=== PATIENT | female | born 1950 ===

== ENCOUNTER 2016-06-21 12:26 | Emergency (ER) | payer MEDICAID, MEDICARE ==
[2016-06-21 12:27] VITALS: BMI 34.5
[2016-06-21] MEDS ORDERED: Albuterol-Ipratrop 3 mg / 0.5 (3 ml) UD ONE (13:15)
--- NOTE | 2016-06-21 13:15 | ED PDOC ---
HPI: CCC, URI, Sore Throat Time Seen by Provider: 06/21/16 12:54 Chief Complaint (Nursing): Chest Pain Chief Complaint (Provider): cough, chest pain, fever History Per: Patient Additional Complaint(s): 66 year old female with history of asthma and HTN presents to emergency department with chest pain and cough that started 4 days ago. Patient states the cough is productive of clear sputum. She has mild shortness of breath but denies any dyspnea on exertion. Patient believes she has had fever at home but has not measured her temperature. She also has body aches and headache with no associated dizziness or vision changes. No associated nausea or vomiting. Patient denies recent travel or recent sick contacts. Past Medical History Reviewed: Historical Data, Nursing Documentation, Vital Signs Vital Signs: Last Vital Signs Temp 96.9 F L 06/21/16 12:36 Pulse 74 06/21/16 12:36 Resp 18 06/21/16 12:36 BP 121/77 06/21/16 12:36 Pulse Ox 96 06/21/16 14:50 - Medical History PMH: Anxiety, Asthma, Depression, HTN - Surgical History Other surgeries: breast reduction, abdominoplasty, left knee surgery - Family History Family History: States: No Known Family Hx - Living Arrangements Living Arrangements: With Family - Social History Current smoker - smoking cessation education provided: No Alcohol: None Drugs: Denies - Home Medications Home Medications: Ambulatory Orders Medication Instructions Recorded Albuterol 0.083% [Albuterol 0.083% 3 ml IH QID PRN 03/22/16 Inhal Luz (2.5 mg/3 ml) UD] Ammonium Lactate 12% [Lac-Hydrin 1 appl TOP DAILY 03/22/16 12% Cream (140 g)] Aspirin [Ecotrin] 81 mg PO DAILY 03/22/16 Atorvastatin [Lipitor] 20 mg PO DAILY 03/22/16 Calcium Carbonate/Vitamin D3 1 tab PO DAILY 03/22/16 [Oysco D Tablet] Cetirizine HCl [Zyrtec] 10 mg PO DAILY PRN 03/22/16 Cholecalciferol [Vitamin D 1000 IU] 1,000 unit PO DAILY 03/22/16 Clopidogrel [Plavix] 75 mg PO DAILY 03/22/16 Cyanocobalamin [Vitamin B12 1000 1,000 mcg PO DAILY 01/03/17 mcg Tab] Dextran 70/Hypromellose 1 drop EACHEYE BID 03/22/16 [Artificial Tears] Diclofenac Sodium [Voltaren] 1 appl TOP Q8H 03/22/16 Escitalopram [Lexapro] 20 mg PO HS 03/22/16 Fluticasone/Salmeterol 250/50 1 puff IH Q12H 03/22/16 [Advair Diskus 250/50] Gabapentin [Neurontin] 600 mg PO TID 03/22/16 Meclizine [Meclizine*] 25 mg PO TID 03/22/16 Metoprolol Succinate [Toprol XL] 25 mg PO DAILY 03/22/16 Omeprazole [Omeprazole] 40 mg PO DAILY 03/22/16 Oxybutynin [Ditropan Tab] 5 mg PO HS 03/22/16 Sucralfate [Carafate Oral Susp] 10 ml PO HS 03/22/16 Topiramate [Topamax] 50 mg PO BID 03/22/16 Valsartan [Diovan] 80 mg PO DAILY 03/22/16 Zolpidem [Ambien] 10 mg PO HS 03/22/16 clonazePAM [Klonopin] 0.5 mg PO TID 03/22/16 Albuterol HFA [Ventolin HFA 90 1 puff IH ASDIR #1 unit 06/21/16 mcg/actuation (8 g)] Azithromycin [Zithromax] 250 mg PO DAILY #6 tab 06/21/16 Benzonatate 200 mg PO TID PRN #20 capsule 06/21/16 Methylprednisolone [Medrol Dose 4 mg PO ASDIR #21 mg 06/21/16 Pack (21 tabs)] - Allergies Allergies/Adverse Reactions: Allergies Allergy/AdvReac Type Severity Reaction Status Date / Time No Known Allergies Allergy Verified 08/22/14 12:06 Curb-65 Severity Score - CURB-65 Severity Score Confusion: No Bun >19mg/dl (>7mmol/L): No Respiratory Rate greater than/equal to 30: No Systolic BP <90 or Diastolic BP less than/equal 60mmHg: No Age >64: No Curb-65 Score: 0 Percentage 30-day mortality: 0.6% Review of Systems ROS Statement: Except As Marked, All Systems Reviewed And Found Negative Constitutional: Positive for: Fever (subjectuve), Chills Cardiovascular: Positive for: Chest Pain (due to cough) Respiratory: Positive for: Cough, Shortness of Breath, Sputum (white), Wheezing. Negative for: SOB with Exertion Gastrointestinal: Negative for: Nausea, Vomiting Genitourinary Female: Negative for: Dysuria Neurological: Positive for: Headache. Negative for: Dizziness Physical Exam - Reviewed Nursing Documentation Reviewed: Yes Vital Signs Reviewed: Yes - Physical Exam Appears: Positive for: Well, Non-toxic, No Acute Distress Head Exam: Positive for: ATRAUMATIC, NORMAL INSPECTION, NORMOCEPHALIC Skin: Positive for: Warm Eye Exam: Positive for: EOMI, Normal appearance, PERRL ENT: Positive for: Nasal Congestion. Negative for: Pharyngeal Erythema Neck: Positive for: Normal, Painless ROM Cardiovascular/Chest: Positive for: Regular Rate, Rhythm Respiratory: Positive for: CNT, Normal Breath Sounds Gastrointestinal/Abdominal: Positive for: Normal Exam, Soft. Negative for: Tenderness, Distended, Guarding, Rebound Back: Positive for: Normal Inspection. Negative for: L CVA Tenderness, R CVA Tenderness, Vertebral Tenderness Extremity: Positive for: Normal ROM. Negative for: Pedal Edema Neurologic/Psych: Positive for: Alert, Oriented - Laboratory Results Result Diagrams: 06/21/16 13:40 06/21/16 13:40 - ECG Interpretation Of ECG: Sinus bradycardia at 57 bpm with PVCs, no acute findings, reviewed by PA and ED attending. O2 Sat by Pulse Oximetry: 96 Pulse Ox Interpretation: Normal - Other Rad CXR X-Ray: Interpreted by Me, Viewed By Me X-Ray Interpretation: no infiltrate Nebulizer Treatments/Peak Flow - Duonebs Number of Bronchodilator Doses given?: 1 - Steroid Treatment Steroid: Oral (rx medrol dose pack) Medical Decision Making Medical Decision Makin66 year old with flu like symptoms Plan: Blood cultures CBC CMP Trop Flu swab IVF PO tylenol CXR Duoneb x 1 3:30 pm: patient feels much better after meds given. She is aware of all diagnostic testing results, all questions answered. Options given for Ventolin inhaler, Tessalon Perles, Zithromax and prednisone. Patient was advised to continue with Tylenol for body aches, to rest and drink plenty fluids and to follow up with primary doctor in 2-3 days. Patient is aware she can return to ED if acutely worse at any time. Disposition - Clinical Impression Clinical Impression: Bronchitis - Patient ED Disposition Is Patient to be Admitted: No Counseled Patient/Family Regarding: Studies Performed, Diagnosis, Need For Followup, Rx Given - Disposition Referrals: Patrice Herrera MD [Family Provider] - Disposition: Routine/Home Disposition Time: 16:01 Condition: STABLE Additional Instructions: Take rx meds as directed. Tylenol as needed for bodyaches. Rest and drink plenty of fluids. Follow up with clinic in 2-3 days. Prescriptions: Benzonatate 200 mg PO TID PRN #20 capsule PRN Reason: Cough Methylprednisolone [Medrol Dose Pack (21 tabs)] 4 mg PO ASDIR #21 mg Albuterol HFA [Ventolin HFA 90 mcg/actuation (8 g)] 1 puff IH ASDIR #1 unit Azithromycin [Zithromax] 250 mg PO DAILY #6 tab Instructions: Acute Bronchitis (ED) Results - Lab Results Lab Results: 06/21/16 06/21/16 06/21/16 14:30 13:45 13:40 WBC 5.9 RBC 4.22 Hgb 11.9 L Hct 36.2 MCV 85.8 MCH 28.2 MCHC 32.9 L RDW 14.1 Plt Count 214 MPV 9.3 Neut % (Auto) 57.7 Lymph % (Auto) 26.7 [place] % (Auto) 10.1 H Eos % (Auto) 4.7 H Baso % (Auto) 0.8 Neut # 3.4 Lymph # 1.6 [place] # 0.6 Eos # 0.3 Baso # 0.0 pO2 28 L VBG pH 7.37 VBG pCO2 49 VBG HCO3 25.8 VBG Total CO2 29.8 H VBG O2 Sat (Calc) 60.2 VBG Base Excess 2.3 H VBG Potassium 3.9 Glucose 91 Lactate 0.8 FiO2 21.0 Sodium 139.0 Potassium 4.0 Chloride 113.0 H Carbon Dioxide 24 Anion Gap 17 BUN 9 Creatinine 0.8 Est GFR ( Amer) > 60 Est GFR (Non-Af Amer) > 60 Random Glucose 90 Calcium 9.2 Total Bilirubin 0.6 AST 35 ALT 33 Alkaline Phosphatase 125 Troponin I < 0.0120 Total Protein 7.3 Albumin 3.9 Globulin 3.4 Albumin/Globulin Ratio 1.1 Venous Blood Potassium 3.9 Urine Color Yellow Urine Clarity Clear Urine pH 6.0 Ur Specific [place] 1.025 Urine Protein 30 Urine Glucose (UA) Neg Urine Ketones Negative Urine Blood Negative Urine Nitrate Negative Urine Bilirubin Negative Urine Urobilinogen 0.2-1.0 Ur Leukocyte Esterase Trace Urine RBC (Auto) 2 Urine Microscopic WBC 2 Ur Squamous Epith Cells 4 Influenza Typ A,B (EIA) Negative for flu a/b
[2016-06-21] MEDS ORDERED: Albuterol-Ipratrop 3 mg / 0.5 (3 ml) UD INH STA (13:16)
[2016-06-21] MEDS ORDERED: Sodium Chloride 0.9% 1,000 ML IV STA (13:16)
[2016-06-21 13:46] LABS: VENOUS BLOOD GAS BASE EXCESS 2.3 mmol/L (0.0-2.0); VENOUS BLOOD GAS PCO2 49 mmHg (40-60); VENOUS BLOOD PH 7.37 (7.32-7.43)
[2016-06-21 14:05] LABS: BASO % 0.8 % (0.0-2.0); EOS # 0.3 K/uL (0.0-0.7); EOS % 4.7 % (0.0-4.0); HEMATOCRIT 36.2 % (34.0-47.0); LYMPH # 1.6 K/uL (1.0-4.3); LYMPH % 26.7 % (20.0-40.0); MEAN CELL VOLUME 85.8 fl (81.0-99.0); MEAN CORPUSCULAR HEMOGLOBIN 28.2 pg (27.0-31.0); MEAN CORPUSCULAR HGB CONC 32.9 g/dL (33.0-37.0); MEAN PLATELET VOLUME 9.3 fl (7.2-11.7); MONO # 0.6 K/uL (0.0-0.8); MONO % 10.1 % (0.0-10.0); NEUT # 3.4 K/uL (1.8-7.0); NEUT % 57.7 % (50.0-75.0); NRBC % 0.2 % (0.0-0.0); RED CELL DISTRIBUTION WIDTH 14.1 % (11.5-14.5); WHITE BLOOD COUNT 5.9 K/uL (4.8-10.8)
[2016-06-21 14:29] LABS: ALB/GLOB RATIO 1.1 (1.0-2.1); ALKALINE PHOSPHATASE 125 U/L (38-126); ALT/SGPT 33 U/L (9-52); AST/SGOT 35 U/L (14-36); BILIRUBIN,TOTAL 0.6 mg/dl (0.2-1.3); BLOOD UREA NITROGEN 9 mg/dl (7-17); CALCIUM 9.2 mg/dL (8.4-10.2); CARBON DIOXIDE 24 mmol/L (22-30); CHLORIDE 107 mmol/L (98-107); GFR AFRICAN-AMERICAN > 60; GLUCOSE,RANDOM 90 mg/dL (65-105); SODIUM 144 mmol/l (132-148); TOTAL PROTEIN 7.3 G/DL (6.3-8.2)
--- NOTE | 2016-06-21 15:06 | RAD ---
HISTORY: Medical clearance. COMPARISON: 03/22/2016. FINDINGS: LUNGS: No active pulmonary disease. PLEURA: No significant pleural effusion identified, no pneumothorax apparent. CARDIOVASCULAR: Tam for cardiac OSSEOUS STRUCTURES: No significant abnormalities. VISUALIZED UPPER ABDOMEN: Normal. OTHER FINDINGS: None. IMPRESSION: No active disease. No significant interval change compared to the prior examination(s). Concordant results with the preliminary interpretation rendered by the emergency department physician procedure.
[2016-06-21 15:26] LABS: RBC URINE 2 /hpf (0-3); URINE BILIRUBIN NEGATIVE (NEGATIVE); URINE BLOOD NEGATIVE (NEGATIVE); URINE COLOR YELLOW (YELLOW); URINE GLUCOSE (UA) NEG (Normal); URINE KETONE NEGATIVE (NEGATIVE); URINE LEUKOCYTE ESTERASE TRACE Leu/uL (Negative); URINE PROTEIN 30 mg/dL (NEGATIVE); URINE UROBILINOGEN 0.2-1.0 mg/dL (0.2-1.0); WBC URINE 2 /hpf (0-5)
[2016-06-21 17:07] VITALS: BP 129/70; PULSE 77; RESP 16; TEMP 97.9; O2SAT 99
== END 2016-06-21 17:07 | disposition home or self-care (01) ==
LOC: H.ER 12:26
DX: J20.9 Acute bronchitis, unspecified (principal); Z86.59 Personal history of other mental and behavioral disorders; I10 Essential (primary) hypertension
CPT/HCPCS: 71010; 80053; 81003; 82803; 84484; 85025; 87040; 87086; 87804; 99282; J7040

== ENCOUNTER 2016-12-19 10:05 | Emergency (ER) | payer MEDICARE, MEDICAID ==
[2016-12-19 10:05] VITALS: BMI 34.5
[2016-12-19] MEDS ORDERED: Sodium Chloride 0.9% 1,000 ML IV STA (10:24)
--- NOTE | 2016-12-19 10:27 | ED PDOC ---
HPI: Abdomen Time Seen by Provider: 12/19/16 10:17 Chief Complaint (Nursing): GI Problem History Per: Patient Onset/Duration Of Symptoms: Days (3) Current Symptoms Are (Timing): Still Present Severity: Mild Pain Scale Rating Of: 2 Location Of Pain/Discomfort: Epigastric, Periumbilical Quality Of Discomfort: Unable To Describe Associated Symptoms: Diarrhea. denies: Fever, Nausea, Vomiting Exacerbating Factors: None Alleviating Factors: None Additional Complaint(s): Epigastric and periumbilical pain assoc ewith diarrhea x 3 days. No fever. Denies vomiting or bloody stools. Recently returned form [place]. Past Medical History Vital Signs: Last Vital Signs Temp 96 F L 12/19/16 10:17 Pulse 78 12/19/16 10:17 Resp 18 12/19/16 10:17 BP 96/55 L 12/19/16 10:17 Pulse Ox 97 12/19/16 10:27 - Medical History PMH: Anxiety, Asthma, Depression, HTN - Family History Family History: States: Unknown Family Hx - Home Medications Home Medications: Ambulatory Orders Medication Instructions Recorded Albuterol 0.083% [Albuterol 0.083% 3 ml IH QID PRN 03/22/16 Inhal Luz (2.5 mg/3 ml) UD] Ammonium Lactate 12% [Lac-Hydrin 1 appl TOP DAILY 03/22/16 12% Cream (140 g)] Aspirin [Ecotrin] 81 mg PO DAILY 03/22/16 Atorvastatin [Lipitor] 20 mg PO DAILY 03/22/16 Calcium Carbonate/Vitamin D3 1 tab PO DAILY 03/22/16 [Oysco D Tablet] Cetirizine HCl [Zyrtec] 10 mg PO DAILY PRN 03/22/16 Cholecalciferol [Vitamin D 1000 IU] 1,000 unit PO DAILY 03/22/16 Clopidogrel [Plavix] 75 mg PO DAILY 03/22/16 Cyanocobalamin [Vitamin B12 1000 1,000 mcg PO DAILY 03/22/16 mcg Tab] Dextran 70/Hypromellose 1 drop EACHEYE BID 03/22/16 [Artificial Tears] Diclofenac Sodium [Voltaren] 1 appl TOP Q8H 03/22/16 Escitalopram [Lexapro] 20 mg PO HS 03/22/16 Fluticasone/Salmeterol 250/50 1 puff IH Q12H 03/22/16 [Advair Diskus 250/50] Gabapentin [Neurontin] 600 mg PO TID 03/22/16 Meclizine [Meclizine*] 25 mg PO TID 03/22/16 Metoprolol Succinate [Toprol XL] 25 mg PO DAILY 03/22/16 Omeprazole [Omeprazole] 40 mg PO DAILY 03/22/16 Oxybutynin [Ditropan Tab] 5 mg PO HS 03/22/16 Sucralfate [Carafate Oral Susp] 10 ml PO HS 03/22/16 Topiramate [Topamax] 50 mg PO BID 03/22/16 Valsartan [Diovan] 80 mg PO DAILY 03/22/16 Zolpidem [Ambien] 10 mg PO HS 03/22/16 clonazePAM [Klonopin] 0.5 mg PO TID 03/22/16 Albuterol HFA [Ventolin HFA 90 1 puff IH ASDIR #1 unit 06/21/16 mcg/actuation (8 g)] Azithromycin [Zithromax] 250 mg PO DAILY #6 tab 06/21/16 Benzonatate 200 mg PO TID PRN #20 capsule 06/21/16 Methylprednisolone [Medrol Dose 4 mg PO ASDIR #21 mg 06/21/16 Pack (21 tabs)] Famotidine [Pepcid] 20 mg PO Q12 #20 tab 12/19/16 Ondansetron [Zofran] 4 mg PO Q8H #10 tab 12/19/16 - Allergies Allergies/Adverse Reactions: Allergies Allergy/AdvReac Type Severity Reaction Status Date / Time No Known Allergies Allergy Verified 12/19/16 10:17 Review of Systems ROS Statement: Except As Marked, All Systems Reviewed And Found Negative Constitutional: Negative for: Fever Cardiovascular: Positive for: Palpitations Gastrointestinal: Positive for: Abdominal Pain, Diarrhea Physical Exam - Reviewed Nursing Documentation Reviewed: Yes Vital Signs Reviewed: Yes - Physical Exam Appears: Positive for: Non-toxic, No Acute Distress Head Exam: Positive for: ATRAUMATIC, NORMAL INSPECTION, NORMOCEPHALIC Skin: Positive for: Normal Color, Warm, DRY Eye Exam: Positive for: EOMI, Normal appearance, PERRL ENT: Positive for: Normal ENT Inspection Neck: Positive for: Normal, Painless ROM Cardiovascular/Chest: Positive for: Regular Rate, Rhythm Respiratory: Positive for: CNT, Normal Breath Sounds Gastrointestinal/Abdominal: Positive for: Bowel Sounds, Soft, Tenderness (Mild epigastric) Back: Positive for: Normal Inspection Extremity: Positive for: Normal ROM Neurologic/Psych: Positive for: Alert, Oriented - Laboratory Results Result Diagrams: 12/19/16 11:08 12/19/16 11:08 - ECG O2 Sat by Pulse Oximetry: 97 Disposition - Clinical Impression Clinical Impression: Gastroenteritis - Patient ED Disposition Is Patient to be Admitted: No Counseled Patient/Family Regarding: Studies Performed, Diagnosis, Need For Followup, Rx Given - Disposition Referrals: [facility] [Outside] Disposition: Routine/Home Disposition Time: 13:36 Condition: FAIR Prescriptions: Famotidine [Pepcid] 20 mg PO Q12 #20 tab Ondansetron [Zofran] 4 mg PO Q8H #10 tab Instructions: Gastroenteritis (ED) Forms: [employer] (Lao)
[2016-12-19 11:16] LABS: BASO % 0.5 % (0.0-2.0); EOS % 0.7 % (0.0-4.0); HEMATOCRIT 32.4 % (34.0-47.0); LYMPH # 1.4 K/uL (1.0-4.3); LYMPH % 22.6 % (20.0-40.0); MEAN CELL VOLUME 86.4 fl (81.0-99.0); MEAN CORPUSCULAR HGB CONC 33.6 g/dL (33.0-37.0); MEAN PLATELET VOLUME 9.2 fl (7.2-11.7); MONO # 0.5 K/uL (0.0-0.8); MONO % 8.1 % (0.0-10.0); NEUT # 4.2 K/uL (1.8-7.0); NEUT % 68.1 % (50.0-75.0); RED CELL DISTRIBUTION WIDTH 14.1 % (11.5-14.5); WHITE BLOOD COUNT 6.2 K/uL (4.8-10.8)
[2016-12-19 11:28] LABS: ALB/GLOB RATIO 1.2 (1.0-2.1); ALKALINE PHOSPHATASE 93 U/L (38-126); ALT/SGPT 17 U/L (9-52); AST/SGOT 36 U/L (14-36); BILIRUBIN,TOTAL 0.4 mg/dl (0.2-1.3); BLOOD UREA NITROGEN 12 mg/dl (7-17); CALCIUM 9.1 mg/dL (8.4-10.2); CARBON DIOXIDE 23 mmol/L (22-30); CHLORIDE 109 mmol/L (98-107); GFR AFRICAN-AMERICAN > 60; SODIUM 143 mmol/l (132-148); TOTAL PROTEIN 6.6 G/DL (6.3-8.2)
[2016-12-19 11:29] LABS: GLUCOSE,RANDOM 105 mg/dL (65-105)
[2016-12-19 14:09] VITALS: BP 124/66; PULSE 61; RESP 16; TEMP 97.9; O2SAT 99
== END 2016-12-19 14:05 | disposition home or self-care (01) ==
LOC: H.ER 10:05
DX: K52.9 Noninfective gastroenteritis and colitis, unspecified (principal)
CPT/HCPCS: 80053; 85025; 96361; 96374; 99284; J7040

== ENCOUNTER 2017-03-06 07:16 | Day surgery (SDC) | payer MEDICARE, MEDICAID ==
[2017-03-01 10:29] VITALS: RESP 18
[2017-03-06] MEDS ORDERED: Lactated Ringer's 1,000 ML IV ONE (08:30)
[2017-03-06] MEDS ORDERED: Iohexol 240 200 ML ONE (09:15)
[2017-03-06] MEDS ORDERED: Lidocaine 2% Jelly (Uro-Jet) ONE (09:15)
[2017-03-06 12:11] VITALS: BP 113/56; PULSE 54; TEMP 98; O2SAT 98
--- NOTE | 2017-03-06 14:19 | RAD ---
PROCEDURE: Intraoperative Fluoroscopy. HISTORY: CYSTOSCOPY FINDINGS: Fluoroscopic assistance was provided for cystoscopy. Please refer to the current procedure: 6.0
--- NOTE | 2017-03-07 08:51 | OP ---
PROCEDURE DATE: 03/06/2017 PREOPERATIVE DIAGNOSIS: Urinary incontinence. POSTOPERATIVE DIAGNOSIS: Urinary incontinence. PROCEDURE: Cystogram followed by a cystoscopy. DESCRIPTION OF PROCEDURE: The patient placed on the operating room table in a supine position. The area of the groin was draped and prepped. At this time, using 2% lidocaine gel, I numbed the urethra. At this time, I inserted a 16 two-way Valdez catheter, drained the bladder and then filled the bladder to capacity with Cystografin. She was able to hold less than 150 mL. She had significant amount of pain on holding that amount of fluid and in any event at that time, the catheter was clamped. The patient was asked to cough on Valsalva. She generated a positive 1 hypermobility of the bladder neck. I removed the Valdez catheter and had the patient cough several times, she generated a positive one-half Good leak test. Following this, I then drained the bladder and I inserted a flexible cystoscope for evaluation of the internal bladder wall. Ureteral orifices were normally placed in their A position. The bladder wall was free of any lesions, diverticula or unusual findings on the bladder wall itself. Once these observations then were made, the patient was taken from the operating room in good condition. Aniceto Gamble MD
== END 2017-03-06 11:30 | disposition home or self-care (01) ==
LOC: H.OPSURG 07:16
PROVIDERS: ATTEND Urology
DX: N32.81 Overactive bladder (principal); M19.90 Unspecified osteoarthritis, unspecified site; F32.9 Major depressive disorder, single episode, unspecified; D64.9 Anemia, unspecified; M54.9 Dorsalgia, unspecified
CPT/HCPCS: 51600; J7120; Q9966

== ENCOUNTER 2017-08-07 08:58 | Observation (INO) | payer MEDICARE, MEDICAID ==
[2017-08-07 08:58] VITALS: BMI 34.5
[2017-08-07 09:55] LABS: BASO # 0.1 K/uL (0.0-0.2); EOS # 0.2 K/uL (0.0-0.7); HEMOGLOBIN 11.7 g/dL (12.0-16.0); LYMPH # 1.6 K/uL (1.0-4.3); LYMPH % 26.7 % (20.0-40.0); MEAN CELL VOLUME 86.8 fl (81.0-99.0); MEAN CORPUSCULAR HGB CONC 33.4 g/dL (33.0-37.0); MEAN PLATELET VOLUME 8.5 fl (7.2-11.7); MONO # 0.5 K/uL (0.0-0.8); MONO % 7.6 % (0.0-10.0); NEUT # 3.8 K/uL (1.8-7.0); NEUT % 61.7 % (50.0-75.0); RBC 4.04 Mil/uL (3.80-5.20); RED CELL DISTRIBUTION WIDTH 14.8 % (11.5-14.5); WHITE BLOOD COUNT 6.1 K/uL (4.8-10.8)
[2017-08-07 10:04] LABS: ALB/GLOB RATIO 1.1 (1.0-2.1); ALBUMIN 3.8 g/dL (3.5-5.0); ALT/SGPT 27 U/L (9-52); AST/SGOT 27 U/L (14-36); BLOOD UREA NITROGEN 15 mg/dl (7-17); CALCIUM 9.5 mg/dL (8.4-10.2); GFR AFRICAN-AMERICAN > 60; GFR NON-AFRICAN AMERICAN 55
--- NOTE | 2017-08-07 10:48 | CT ---
PROCEDURE: CT HEAD WITHOUT CONTRAST. HISTORY: r/o ICH COMPARISON: None available. TECHNIQUE: Axial computed tomography images were obtained through the head/brain without intravenous contrast. Radiation dose: Total exam DLP = 807.31 mGy-cm. This CT exam was performed using one or more of the following dose reduction techniques: Automated exposure control, adjustment of the mA and/or kV according to patient size, and/or use of iterative reconstruction technique. FINDINGS: HEMORRHAGE: No intracranial hemorrhage. BRAIN: Good corticomedullary differentiation is seen. Diffuse expansion of the ventriculosulcal and cisternal spaces is appreciated compatible with diffuse cerebral atrophy. A chronic lacune is seen at the upper left clem/cerebral peduncle. No extra-axial fluid collection is identified and the midline brain anatomy appears grossly nonfocal as imaged. There is no mass effect throughout. VENTRICLES: Unremarkable. No hydrocephalus. CALVARIUM: Unremarkable. PARANASAL SINUSES: Unremarkable as visualized. No significant inflammatory changes. MASTOID AIR CELLS: Unremarkable as visualized. No inflammatory changes. OTHER FINDINGS: None. IMPRESSION: No definite CT evidence of an acute or subacute brain infarction at this time. A chronic lacune is identified at the upper left clem/ cerebral peduncle. No intracranial hemorrhage or mass-effect.
--- NOTE | 2017-08-07 10:53 | RAD ---
PROCEDURE: Radiographs of the Right Forearm HISTORY: fall R arm pain COMPARISON: None available. TECHNIQUE: Frontal and lateral views obtained. FINDINGS: BONES: No fracture or destructive lesion. JOINT SPACES: Unremarkable. OTHER FINDINGS: None. IMPRESSION: Unremarkable radiographs of the right forearm.
--- NOTE | 2017-08-07 10:54 | RAD ---
PROCEDURE: Radiographs of the pelvis. HISTORY: fall L pelvis pain COMPARISON: None. FINDINGS: BONES: Pelvic Bones: Unremarkable. Hips: Mild and symmetrical degenerative changes. JOINTS: Sacroiliac Joints: Unremarkable. Pubic Symphysis: Unremarkable. OTHER FINDINGS: None. IMPRESSION: No significant or acute findings to account for/ related to the clinical presentation. Additional benign and/or incidental findings described above.
--- NOTE | 2017-08-07 10:54 | RAD ---
PROCEDURE: Radiographs of the Lumbar Spine. HISTORY: fall back pain COMPARISON: 03/03/2014 FINDINGS: BONES: Grade 1 anterolisthesis L5-S1. No vertebral body fractures identified. DISC SPACES: Unremarkable. OTHER FINDINGS: Calcified nonaneurysmal abdominal aorta. IMPRESSION: No acute findings related to/accounting for the clinical presentation. Additional benign and/or incidental findings described above. No significant interval change compared to the prior examination(s).
--- NOTE | 2017-08-07 10:55 | RAD ---
HISTORY: fall COMPARISON: 03/01/2017 TECHNIQUE: Chest PA and lateral FINDINGS: LUNGS: No active pulmonary disease. PLEURA: No significant pleural effusion identified. No pneumothorax apparent. CARDIOVASCULAR: Normal. OSSEOUS STRUCTURES: No significant abnormalities. VISUALIZED UPPER ABDOMEN: Normal. OTHER FINDINGS: None. IMPRESSION: No active disease. No significant interval change compared to the prior examination(s).
--- NOTE | 2017-08-07 10:57 | RAD ---
PROCEDURE: Right Hand Radiographs. HISTORY: fall R hand pain COMPARISON: 03/03/2014 FINDINGS: BONES: Normal. No fracture. JOINTS: Osteoarthritic changes affecting proximal, distal interphalangeal joints and carpal 1st metacarpal joint (progressive compared to the prior study) SOFT TISSUES: Normal. OTHER FINDINGS: None. IMPRESSION: No acute findings related to/accounting for the clinical presentation. Osteoarthritic changes moderate. Progression carpal 1st metacarpal joint only.
--- NOTE | 2017-08-07 12:58 | ED PDOC ---
HPI: General Adult Time Seen by Provider: 08/07/17 09:12 Chief Complaint (Nursing): Upper Extremity Problem/Injury Chief Complaint (Provider): fall on monday History Per: Patient History/Exam Limitations: no limitations Current Symptoms Are (Timing): Still Present Similar Symptoms Previously: + Additional Complaint(s): 67yo female c/o fall on monday preceded by dizziness, injured her R forearm, hand, neck and back. Denies LOC. Taking OTC NSAIDs w some relief. Denies chest pain, SOB, fever, edema or focal weakness. PMD [facility] Cardio [place]. States last stress several years ago, had cath at [facility] about 10yrs ago. Past Medical History Reviewed: Historical Data, Nursing Documentation, Vital Signs Vital Signs: Last Vital Signs Temp 98.2 F 08/07/17 17:04 Pulse 79 08/07/17 17:04 Resp 16 08/07/17 17:04 BP 93/61 L 08/07/17 17:04 Pulse Ox 98 08/07/17 13:32 - Medical History PMH: Anemia, Anxiety, Arthritis, Asthma, Depression, HTN, Hypercholesterolemia Denies: Chronic Kidney Disease - Surgical History Other surgeries: stomach surgery - Family History Family History: States: Unknown Family Hx - Social History Current smoker - smoking cessation education provided: No - Home Medications Home Medications: Ambulatory Orders Medication Instructions Recorded Aspirin [Adult Low Dose Aspirin EC] 81 mg PO DAILY 03/06/17 Diclofenac Sodium [Voltaren] 1 appl TOP Q8 PRN 03/06/17 Gabapentin [Neurontin] 600 mg PO TID 03/06/17 Metoprolol Succinate [Toprol XL] 25 mg PO DAILY 03/06/17 Topiramate [Topamax] 50 mg PO BID 03/06/17 Valsartan [Diovan] 80 mg PO DAILY 03/06/17 Zolpidem Tartrate [Ambien] 10 mg PO HS 03/06/17 clonazePAM [Klonopin] 0.5 mg PO TID 03/06/17 Albuterol 0.083% [Albuterol 0.083% 3 ml IH Q6 PRN 08/07/17 Inhal Luz (2.5 mg/3 ml) UD] Calcium Carbonate [Oscal] 1 tab PO BID 08/07/17 Clopidogrel [Plavix] 75 mg PO DAILY 08/07/17 Diclofenac Sodium [Diclofenac 100 mg PO Q12 08/07/17 Sodium ER] Escitalopram [Lexapro] 20 mg PO DAILY 08/07/17 Imipramine [Tofranil] 50 mg PO HS 08/07/17 Meclizine [Meclizine*] 25 mg PO Q8 08/07/17 Pantoprazole Sodium [Protonix] 40 mg PO DAILY 08/07/17 Sucralfate [Carafate] 1 gm PO BID 08/07/17 buPROPion SR [Wellbutrin] 100 mg PO Q12 08/07/17 - Allergies Allergies/Adverse Reactions: Allergies Allergy/AdvReac Type Severity Reaction Status Date / Time No Known Allergies Allergy Verified 08/07/17 09:09 Review of Systems Constitutional: Negative for: Fever Cardiovascular: Positive for: Palpitations. Negative for: Chest Pain, Orthopnea Respiratory: Negative for: Cough, Shortness of Breath Genitourinary Female: Negative for: Dysuria Musculoskeletal: Positive for: Neck Pain, Arm Pain, Back Pain, Hand Pain, Other (aches and pains). Negative for: Foot Pain Skin: Negative for: Rash, Lesions, Jaundice Neurological: Positive for: Dizziness. Negative for: Weakness, Numbness, Headache Psych: Negative for: Depression Physical Exam - Reviewed Nursing Documentation Reviewed: Yes Vital Signs Reviewed: Yes - Physical Exam Appears: Positive for: Well, Non-toxic, No Acute Distress Head Exam: Positive for: ATRAUMATIC, NORMAL INSPECTION, NORMOCEPHALIC Skin: Positive for: Normal Color, Warm, DRY Eye Exam: Positive for: EOMI, Normal appearance, PERRL ENT: Positive for: Normal ENT Inspection Neck: Positive for: Normal, Painless ROM Cardiovascular/Chest: Positive for: Regular Rate, Rhythm Respiratory: Positive for: CNT, Normal Breath Sounds Gastrointestinal/Abdominal: Positive for: Normal Exam, Soft. Negative for: Tenderness, Guarding Back: Positive for: Normal Inspection Extremity: Positive for: Tenderness (R central forearm mild ecchymosis, R prox hand/radial side mild tenderness, no deformity/edema to hands, FROM hips, back mild paraspinal tenderness no step offs) Neurologic/Psych: Positive for: Alert, Oriented - Laboratory Results Result Diagrams: 08/07/17 09:40 08/07/17 09:40 - ECG ECG: Positive for: Interpreted By Me ECG Rhythm: Positive for: Sinus Rhythm, ST/T Changes Interpretation Of Abn EKG: + anterior ST inversions new from prior EKG 2016 Rate: 72 O2 Sat by Pulse Oximetry: 98 Pulse Ox Interpretation: Normal Medical Decision Making Medical Decision Making: BP mildly low check bloodwork, imaging r/o traumatic injury EKG obtained given fall, dizziness and borderline BP +ST changes compared to prior from [address] Ford for further history Dr Sosa returned call and case discussed. labs unremarkable XRays did not demonstrate acute fracture R hand/forearm/pelvis CXR unremarkable Admit Obs FP service D/w Dr Bernabe Disposition - Clinical Impression Clinical Impression: Acute electrocardiogram changes, Dizziness, Head injury, Contusion, forearm, Sprain, hand - Patient ED Disposition Is Patient to be Admitted: Yes Counseled Patient/Family Regarding: Studies Performed, Diagnosis - Disposition Disposition Time: 11:45 Condition: STABLE - Pt Status Changed To: Hospital Disposition Of: Observation - POA Present On Arrival: None
--- NOTE | 2017-08-07 15:22 | CARD ---
APPROVED REPORT EKG Measurement Heart [id number] CO [id number] <Conclusion> Normal sinus rhythm Incomplete right bundle branch block Minimal voltage criteria for LVH, may be normal variant ST & T wave abnormality, consider anterior ischemia Abnormal ECG
--- NOTE | 2017-08-07 16:38 | CP.PCM.HP ---
History of Present Illness - History of Present Illness History of Present Illness: 67 year old female w/ PMHx of HTN, HLD, Ashtma presented to ED after a fall on Monday preceded by dizziness. Patient injured her R forearm, hand, neck and back. Patient denies LOC though cant remember how she fell though she knows it was 3 steps.Patient taking OTC NSAIDs with some relief. Denies chest pain, SOB, fever, edema or focal weakness. Patient was evaluated in ED, xrays/CT were completed, unremarkable. However, there was some notable ekg changes. These changes were discussed with patient's special procedure tech group, recommending to observe patient in the telemetry unit. Patient denies chest pain, sob, abdominal pain, nausea, vomiting, diarrhea, fever, chills. Patient does admit to occasionally lightheadness that she has history of that is resolved with meclizine. No other complaints offered at this time. PMHx: Anemia, Anxiety, Arthritis, Asthma, Depression, HTN, Hypercholesterolemia , States last stress several years ago, had cath at [facility] about 10yrs ago. Medications: As per chart Allergies: NKDA Family hx: non contributory Social hx: denies etoh, tobacco, or drug use ED Course: Vitals stable EKG: +ST changes compared to prior from [address] Ford for further history. Dr Sosa returned call and case discussed. Labs unremarkable XRays did not demonstrate acute fracture R hand/forearm/pelvis CXR unremarkable CT head no acute changes Present on Admission - Present on Admission Any Indicators Present on Admission: No Review of Systems - Review of Systems All systems: reviewed and no additional remarkable complaints except (mentioned in HPI) Past Patient History - Past Medical History & Family History Past Medical History?: Yes - Past Social History Smoking Status: Never Smoked - CARDIAC Hx Hypercholesterolemia: Yes Hx Hypertension: Yes - PULMONARY Hx Asthma: Yes - NEUROLOGICAL Hx Neurological Disorder: No Hx Vertigo: Yes - HEENT Hx HEENT Problems: No - RENAL Hx Chronic Kidney Disease: No - ENDOCRINE/METABOLIC Hx Endocrine Disorders: No - HEMATOLOGICAL/ONCOLOGICAL Hx Anemia: Yes - INTEGUMENTARY Hx Dermatological Problems: No - MUSCULOSKELETAL/RHEUMATOLOGICAL Hx Arthritis: Yes - GASTROINTESTINAL Hx Gastrointestinal Disorders: No - GENITOURINARY/GYNECOLOGICAL Hx Genitourinary Disorders: Yes Hx Incontinence: Yes (AT NIGHT) - PSYCHIATRIC Hx Anxiety: Yes Hx Depression: Yes - SURGICAL HISTORY Hx Surgeries: Yes Hx Section: Yes (x3) Hx Gastric Bypass Surgery: Yes (2009) Hx Hysterectomy: Yes Other/Comment: BREAST REDUCTION - ANESTHESIA Hx Anesthesia: Yes Hx Anesthesia Reactions: No Hx Malignant Hyperthermia: No Meds Allergies/Adverse Reactions: Allergies Allergy/AdvReac Type Severity Reaction Status Date / Time No Known Allergies Allergy Verified 08/07/17 09:09 Physical Exam - Constitutional Appears: Well, Non-toxic, No Acute Distress - Head Exam Head Exam: NORMAL INSPECTION, NORMOCEPHALIC Additional comments: left parietal contusion without tenderness or erythema - Eye Exam Eye Exam: EOMI, Normal appearance, PERRL - ENT Exam ENT Exam: Mucous Membranes Moist - Neck Exam Neck exam: Positive for: Normal Inspection - Respiratory Exam Respiratory Exam: Clear to Auscultation Bilateral, NORMAL BREATHING PATTERN. absent: Decreased Breath Sounds, Rales, Rhonchi, Wheezes - Cardiovascular Exam Cardiovascular Exam: REGULAR RHYTHM, RRR, +S1, +S2 - GI/Abdominal Exam GI & Abdominal Exam: Normal Bowel Sounds, Soft. absent: Tenderness - Extremities Exam Extremities exam: Positive for: normal inspection. Negative for: calf tenderness, pedal edema - Back Exam Back exam: NORMAL INSPECTION - Neurological Exam Neurological exam: Alert, Normal Gait, Oriented x3 - Psychiatric Exam Psychiatric exam: Normal Affect, Normal Mood - Skin Skin Exam: Abrasion (right forearm), Dry, Intact, Normal Color, Warm Results - Vital Signs Recent Vital Signs: Last Vital Signs Temp 98.2 F 08/07/17 09:09 Pulse 79 08/07/17 09:09 Resp 16 08/07/17 09:09 BP 93/61 L 08/07/17 09:09 Pulse Ox 98 08/07/17 13:32 - Labs Result Diagrams: 08/07/17 09:40 08/07/17 09:40 Labs: Laboratory Results - last 24 hr 08/07/17 08/07/17 09:40 09:40 WBC 6.1 RBC 4.04 Hgb 11.7 L Hct 35.0 MCV 86.8 MCH 29.0 MCHC 33.4 RDW 14.8 H Plt Count 252 MPV 8.5 Neut % (Auto) 61.7 Lymph % (Auto) 26.7 [place] % (Auto) 7.6 Eos % (Auto) 3.0 Baso % (Auto) 1.0 Neut # (Auto) 3.8 Lymph # (Auto) 1.6 [place] # (Auto) 0.5 Eos # (Auto) 0.2 Baso # (Auto) 0.1 Sodium 141 Potassium 4.3 Chloride 103 Carbon Dioxide 26 Anion Gap 16 BUN 15 Creatinine 1.0 Est GFR ( Amer) > 60 Est GFR (Non-Af Amer) 55 Random Glucose 89 Calcium 9.5 Total Bilirubin 0.4 AST 27 ALT 27 Alkaline Phosphatase 117 Total Creatine Kinase 62 Troponin I < 0.0120 Total Protein 7.4 Albumin 3.8 Globulin 3.6 Albumin/Globulin Ratio 1.1 Assessment & Plan (1) Abnormal EKG Status: Acute (2) Anxiety Status: Chronic (3) HTN (hypertension) Status: Chronic (4) Dizziness Status: Chronic (5) DVT prophylaxis Status: Acute - Assessment and Plan (Free Text) Assessment: 67 year old female w/ PMHx of HTN, HLD, Ashtma with a fall preceded by dizziness on Monday, notable for EKG changes. Plan (1) Abnormal EKG -Case discussed with ED attending whom discussed with Dr. Sosa, agrees for observation on telemetry unit -Asymptomatic at this time -Repeat EKG in AM -r/o ACS, trop x 3, 1st negative -[employer] consulted, appreciate recommendations -monitor on telemetry unit (2) HTN (hypertension) -controlled -asymptomatic -c/w home meds and f/u with cardiology recommendations (3) Dizziness -Chronic -Relived in the past with meclizine, as per patient diagnosed with vertigo -will continue with meclizine (4) Fall/presyncope -Imaging negative -f/u with [employer] recommendations -pain control as needed (5) Anxiety -c/w home medications -no acute exacerbation noted at this time (6) DVT prophylaxis Lovenox 40mg SC
[2017-08-07] MEDS ORDERED: Patient's Own Med (Diclofenac Sodium [Voltaren] 1 APPL) TOP PRN (17:09)
--- NOTE | 2017-08-07 21:31 | CP.PCM.CON ---
History of Present Illness - History of Present Illness History of Present Illness: CC: Fall, near syncope. HPI: I have been requested on cardiology consultation by Dr. Hernandez on Mrs. Teixeira who is a 67 year old female with a PMH of hypertension, palpitations, obesity and anxiety who presents to [facility] with her and granddaughter after sustaining a fall after climbing 3 steps where she sustained trauma to the arms, elbows and torso. She did not experience syncope but does not recall the entire event. The patient denies dizziness, chest pain, palpitations or any other complaints prior to the event. She did note that her BP at home was 90/60 mmHg. She had another similar event a month ago when she fell after using the bathroom. A CT of the head revealed an old lacunar infarct , an ECG revealed NSR, IRBBB, LVH and possible anterior ischemia and two sets of troponins are negative. Review of Systems - Constitutional Constitutional: As Per HPI, Frequent Falls. absent: Chills, Fatigue, Fever - EENT Eyes: absent: Blurred Vision, Diplopia, Loss of Peripheral Vision, Pain Ears: Dizziness. absent: Abnormal Hearing Nose/Mouth/Throat: Neck Pain. absent: Nasal Congestion, Throat Swelling - Cardiovascular Cardiovascular: absent: Chest Pain, Dyspnea on Exertion, Edema, Palpitations - Respiratory Respiratory: absent: Cough, Dyspnea, Wheezing, Excessive Mucous Production - Gastrointestinal Gastrointestinal: absent: Abdominal Pain, Diarrhea, Dyspepsia, Nausea, Vomiting - Genitourinary Genitourinary: absent: Dysuria - Integumentary Integumentary: absent: Erythema, Rash, Skin Ulcer, Swelling - Neurological Neurological: absent: Abnormal Gait, Abnormal Speech, Focal Weakness, Headaches , Sensory Deficit - Psychiatric Psychiatric: Anxiety. absent: Memory Loss - Endocrine Endocrine: Fatigue, Flushing - Hematologic/Lymphatic Hematologic: absent: Easy Bleeding, Easy Bruising Past Patient History - Past Medical History & Family History Past Medical History?: Yes - Past Social History Smoking Status: Never Smoked Alcohol: None Drugs: Denies - CARDIAC Hx Hypercholesterolemia: Yes Hx Hypertension: Yes - PULMONARY Hx Asthma: Yes - NEUROLOGICAL Hx Neurological Disorder: No Hx Vertigo: Yes - HEENT Hx HEENT Problems: No - RENAL Hx Chronic Kidney Disease: No - ENDOCRINE/METABOLIC Hx Endocrine Disorders: No - HEMATOLOGICAL/ONCOLOGICAL Hx Anemia: Yes - INTEGUMENTARY Hx Dermatological Problems: No - MUSCULOSKELETAL/RHEUMATOLOGICAL Hx Arthritis: Yes - GASTROINTESTINAL Hx Gastrointestinal Disorders: No - GENITOURINARY/GYNECOLOGICAL Hx Genitourinary Disorders: Yes Hx Incontinence: Yes (AT NIGHT) - PSYCHIATRIC Hx Anxiety: Yes Hx Depression: Yes - SURGICAL HISTORY Hx Surgeries: Yes Hx Section: Yes (x3) Hx Gastric Bypass Surgery: Yes (2009) Hx Hysterectomy: Yes Other/Comment: BREAST REDUCTION - ANESTHESIA Hx Anesthesia: Yes Hx Anesthesia Reactions: No Hx Malignant Hyperthermia: No Meds Allergies/Adverse Reactions: Allergies Allergy/AdvReac Type Severity Reaction Status Date / Time No Known Allergies Allergy Verified 08/07/17 09:09 - Medications Medications: Current Medications Aspirin (Ecotrin) 81 mg PO DAILY [facility] Bupropion HCl (Wellbutrin) 100 mg PO Q12 [facility] Last Admin: 08/07/17 21:07 Dose: 100 mg Calcium Carbonate (Oscal) 500 mg PO BID [facility] Clonazepam (Klonopin) 0.5 mg PO TID [facility] Clopidogrel Bisulfate (Plavix) 75 mg PO DAILY [facility] Enoxaparin Sodium (Lovenox) 40 mg SC DAILY [facility] PRN Reason: Protocol Escitalopram Oxalate (Lexapro) 20 mg PO DAILY [facility] Gabapentin (Neurontin) 600 mg PO TID [facility] Home Med (Diclofenac Sodium [Voltaren]) 1 appl TOP Q8 PRN PRN Reason: Pain, moderate (4-7) Meclizine HCl (Antivert) 25 mg PO Q8 PRN PRN Reason: Dizziness Metoprolol Succinate (Toprol Xl) 25 mg PO DAILY [facility] Pantoprazole Sodium (Protonix Ec Tab) 40 mg PO DAILY [facility] Topiramate (Topamax) 50 mg PO BID [facility] Last Admin: 08/07/17 18:42 Dose: 50 mg Valsartan (Diovan) 80 mg PO DAILY [facility] Zolpidem Tartrate (Ambien) 5 mg PO HS PRN PRN Reason: Insomnia Physical Exam - Constitutional Appears: Well, Non-toxic, No Acute Distress, Other - Head Exam Head Exam: ATRAUMATIC. absent: NORMAL INSPECTION, NORMOCEPHALIC - Eye Exam Eye Exam: PERRL. absent: EOMI, Normal appearance - ENT Exam ENT Exam: absent: Mucous Membranes Moist, Normal Exam - Neck Exam Neck exam: Positive for: Full Rom, Normal Inspection - Respiratory Exam Respiratory Exam: Clear to Auscultation Bilateral. absent: Rales, Rhonchi, Wheezes, Respiratory Distress - Cardiovascular Exam Cardiovascular Exam: REGULAR RHYTHM, RRR, +S1, +S2. absent: Gallop, Rubs - GI/Abdominal Exam GI & Abdominal Exam: Normal Bowel Sounds, Soft. absent: Distended, Guarding, Tenderness - Rectal Exam Rectal Exam: Deferred - Extremities Exam Extremities exam: Positive for: full ROM, normal inspection. Negative for: joint swelling, pedal edema - Back Exam Back exam: FULL ROM, NORMAL INSPECTION. absent: tenderness - Neurological Exam Neurological exam: Alert, CN II-XII Intact, Oriented x3 - Psychiatric Exam Psychiatric exam: Normal Affect, Normal Mood - Skin Skin Exam: Abrasion, Dry, Normal Color, Warm Results - Vital Signs Recent Vital Signs: Last Vital Signs Temp 97.6 F 08/07/17 20:19 Pulse 68 08/07/17 20:19 Resp 20 08/07/17 20:19 BP 128/77 08/07/17 20:19 Pulse Ox 98 08/07/17 20:19 - Labs Result Diagrams: 08/07/17 09:40 08/07/17 09:40 Labs: Laboratory Results - last 24 hr 08/07/17 08/07/17 08/07/17 09:40 09:40 18:00 WBC 6.1 RBC 4.04 Hgb 11.7 L Hct 35.0 MCV 86.8 MCH 29.0 MCHC 33.4 RDW 14.8 H Plt Count 252 MPV 8.5 Neut % (Auto) 61.7 Lymph % (Auto) 26.7 [place] % (Auto) 7.6 Eos % (Auto) 3.0 Baso % (Auto) 1.0 Neut # (Auto) 3.8 Lymph # (Auto) 1.6 [place] # (Auto) 0.5 Eos # (Auto) 0.2 Baso # (Auto) 0.1 Sodium 141 Potassium 4.3 Chloride 103 Carbon Dioxide 26 Anion Gap 16 BUN 15 Creatinine 1.0 Est GFR ( Amer) > 60 Est GFR (Non-Af Amer) 55 Random Glucose 89 Calcium 9.5 Total Bilirubin 0.4 AST 27 ALT 27 Alkaline Phosphatase 117 Total Creatine Kinase 62 Troponin I < 0.0120 < 0.0120 Total Protein 7.4 Albumin 3.8 Globulin 3.6 Albumin/Globulin Ratio 1.1 Assessment & Plan - Assessment and Plan (Free Text) Assessment: 1. S/p fall. 2. Orthostatic hypotension. 3. Anxiety. 4. HTN. Plan: 1. Continue present medical management. 2. Orthostatic BP checks. 3. Monitor telemetry. 4. Stable cardiac meng, will sign off. - Date & Time Date: 08/07/17 Time: 18:20
[2017-08-08 05:39] LABS: HEMOGLOBIN 11.2 g/dL (12.0-16.0); MEAN CELL VOLUME 86.9 fl (81.0-99.0); MEAN CORPUSCULAR HEMOGLOBIN 28.6 pg (27.0-31.0); MEAN CORPUSCULAR HGB CONC 32.9 g/dL (33.0-37.0); RBC 3.91 Mil/uL (3.80-5.20); RED CELL DISTRIBUTION WIDTH 14.5 % (11.5-14.5); WHITE BLOOD COUNT 5.9 K/uL (4.8-10.8)
[2017-08-08 05:51] LABS: IRON 35 ug/dL (37-170)
[2017-08-08 06:00] LABS: % IRON SATURATION 8 % (20-55); TOTAL IRON BINDING CAPACITY 432 ug/dL (250-450)
[2017-08-08 06:12] LABS: FERRITIN 8.4 ng/Ml (11.1-264.0)
[2017-08-08] MEDS: Enoxaparin 40 mg Syringe SC SCH (08:41)
[2017-08-08] MEDS: Pantoprazole 40 mg EC Tab PO SCH (08:42)
[2017-08-08] MEDS ORDERED: Metoprolol Succinate 25 mg XL Tab PO SCH (09:00)
--- NOTE | 2017-08-08 16:05 | CP.PCM.PN ---
Subjective - Date & Time of Evaluation Date of Evaluation: 08/08/17 Time of Evaluation: 07:30 - Subjective Subjective: Patient seen and examined at bedside this morning. No acute overnight events. Pt reports feeling fine. Pt reports occasional dizziness but states its chronic. Denies any chest pain, dyspnea, headache, blurry vision, cough, abdominal pain, nausea, vomiting, calf pain, fever or chills. Pt is tolerating PO intake. Has regular BM and normal voiding. Objective - Vital Signs/Intake and Output Vital Signs (last 24 hours): Temp Pulse Resp BP Pulse Ox 97.8 F 61 18 109/70 99 08/08/17 12:25 08/08/17 12:25 08/08/17 12:25 08/08/17 12:25 08/08/17 12:25 - Medications Medications: Current Medications Acetaminophen (Tylenol 325mg Tab) 650 mg PO Q4 PRN PRN Reason: Headache Aspirin (Ecotrin) 81 mg PO DAILY [facility] Last Admin: 08/08/17 08:42 Dose: 81 mg Bupropion HCl (Wellbutrin) 100 mg PO Q12 [facility] Last Admin: 08/08/17 08:43 Dose: 100 mg Calcium Carbonate (Oscal) 500 mg PO BID [facility] Last Admin: 08/08/17 08:41 Dose: 500 mg Clonazepam (Klonopin) 0.5 mg PO TID [facility] Last Admin: 08/08/17 12:38 Dose: 0.5 mg Clopidogrel Bisulfate (Plavix) 75 mg PO DAILY [facility] Last Admin: 08/08/17 08:41 Dose: 75 mg Enoxaparin Sodium (Lovenox) 40 mg SC DAILY [facility] PRN Reason: Protocol Last Admin: 08/08/17 08:41 Dose: 40 mg Escitalopram Oxalate (Lexapro) 20 mg PO DAILY [facility] Last Admin: 08/08/17 08:42 Dose: 20 mg Gabapentin (Neurontin) 600 mg PO TID [facility] Last Admin: 08/08/17 12:37 Dose: 600 mg Home Med (Diclofenac Sodium [Voltaren]) 1 appl TOP Q8 PRN PRN Reason: Pain, moderate (4-7) Meclizine HCl (Antivert) 25 mg PO Q8 PRN PRN Reason: Dizziness Last Admin: 08/08/17 09:09 Dose: 25 mg Metoprolol Succinate (Toprol Xl) 25 mg PO DAILY [facility] Last Admin: 08/08/17 08:42 Dose: Not Given Pantoprazole Sodium (Protonix Ec Tab) 40 mg PO DAILY [facility] Last Admin: 08/08/17 08:42 Dose: 40 mg Topiramate (Topamax) 50 mg PO BID [facility] Last Admin: 08/08/17 08:42 Dose: 50 mg Zolpidem Tartrate (Ambien) 5 mg PO HS PRN PRN Reason: Insomnia Last Admin: 08/07/17 21:51 Dose: 5 mg - Labs Labs: 08/08/17 04:20 08/07/17 09:40 - Additional Findings Additional findings: - Constitutional Appears: Well, No Acute Distress - Head Exam Head Exam: NORMAL INSPECTION, NORMOCEPHALIC - Eye Exam Eye Exam: EOMI, Normal appearance, - ENT Exam ENT Exam: Mucous Membranes Moist - Neck Exam Neck exam: Positive for: Normal Inspection - Respiratory Exam Respiratory Exam: Clear to Auscultation Bilateral, NORMAL BREATHING PATTERN. absent: Rales, Rhonchi, Wheezes - Cardiovascular Exam Cardiovascular Exam: REGULAR RHYTHM, RRR, +S1, +S2 - GI/Abdominal Exam GI & Abdominal Exam: Normal Bowel Sounds, Soft. absent: Tenderness - Extremities Exam Extremities exam: Positive for: normal inspection. Negative for: calf tenderness, pedal edema - Neurological Exam Neurological exam: Alert, Normal Gait, Oriented x3 - Psychiatric Exam Psychiatric exam: Normal Affect, Normal Mood - Skin Skin Exam: Abrasion (right forearm), Dry, Intact, Normal Color, Warm Assessment and Plan - Assessment and Plan (Free Text) Assessment: 67 year old female with PMHx of HTN, hyperlipidemia and asthma with a fall preceded by dizziness on Monday, notable for EKG changes Plan (1) Abnormal EKG -Case discussed with ED attending whom discussed with Dr. Sosa, agrees for observation on telemetry unit -Asymptomatic at this time -Trop x 3: negative -Technician Trainee recommendation appreciated: pt is stable to discharge from cardiac standpoint (2) Fall/presyncope -Imaging negative -Physical Therapy recommendation: recommends patient to be transferred to TCU to improve on her weakness and difficulty walking. (3) Dizziness -Chronic -Relived in the past with meclizine, as per patient diagnosed with vertigo -continue with meclizine (4) HTN (hypertension) -controlled -asymptomatic -c/w home meds and f/u with cardiology recommendations (5) Anxiety -c/w home medications -no acute exacerbation noted at this time (6) DVT prophylaxis Lovenox 40mg SC (7)Code status -Full code
--- NOTE | 2017-08-09 07:11 | CP.PCM.PN ---
Objective - Vital Signs/Intake and Output Vital Signs (last 24 hours): Temp Pulse Resp BP Pulse Ox 98.0 F 66 18 94/55 L 95 08/09/17 05:48 08/09/17 05:48 08/09/17 05:48 08/09/17 05:48 08/09/17 05:48 - Medications Medications: Current Medications Acetaminophen (Tylenol 325mg Tab) 650 mg PO Q4 PRN PRN Reason: Headache Aspirin (Ecotrin) 81 mg PO DAILY [facility] Last Admin: 08/08/17 08:42 Dose: 81 mg Bupropion HCl (Wellbutrin) 100 mg PO Q12 [facility] Last Admin: 08/08/17 21:04 Dose: 100 mg Calcium Carbonate (Oscal) 500 mg PO BID [facility] Last Admin: 08/08/17 16:39 Dose: 500 mg Clonazepam (Klonopin) 0.5 mg PO TID PRN PRN Reason: Anxiety Clopidogrel Bisulfate (Plavix) 75 mg PO DAILY [facility] Last Admin: 08/08/17 08:41 Dose: 75 mg Enoxaparin Sodium (Lovenox) 40 mg SC DAILY [facility] PRN Reason: Protocol Last Admin: 08/08/17 08:41 Dose: 40 mg Escitalopram Oxalate (Lexapro) 20 mg PO DAILY [facility] Last Admin: 08/08/17 08:42 Dose: 20 mg Gabapentin (Neurontin) 600 mg PO TID [facility] Last Admin: 08/08/17 16:39 Dose: 600 mg Home Med (Diclofenac Sodium [Voltaren]) 1 appl TOP Q8 PRN PRN Reason: Pain, moderate (4-7) Meclizine HCl (Antivert) 25 mg PO Q8 PRN PRN Reason: Dizziness Last Admin: 08/08/17 09:09 Dose: 25 mg Pantoprazole Sodium (Protonix Ec Tab) 40 mg PO DAILY [facility] Last Admin: 08/08/17 08:42 Dose: 40 mg Topiramate (Topamax) 50 mg PO BID [facility] Last Admin: 08/08/17 16:40 Dose: 50 mg Zolpidem Tartrate (Ambien) 5 mg PO HS PRN PRN Reason: Insomnia Last Admin: 08/08/17 21:06 Dose: 5 mg - Labs Labs: 08/08/17 04:20 08/07/17 09:40
[2017-08-09 07:59] VITALS: RESP 20
--- NOTE | 2017-08-09 08:42 | PQF GENQUE ---
This form is a permanent part of the medical record 08/09/17 Dr. Steve Torres, Please clarify the appropriate diagnosis for this patient. Intensive Care Anaesthetist documented the following information ( ORTHOSTATIC HYPOTENSION ) with no mention of this diagnosis in your documentation. Please indicate in your next progress note and/or discharge summary your agreement with strategic sourcing consultant or provide clarification that this diagnosis is not a current condition. Presented to ED after a fall on Monday preceded by dizziness. Patient injured her R forearm, hand, neck and back. Patient denies LOC though can't remember how she fell though she knows it was 3 steps. Cardiology consult: S/P Fall, Orthostatic hypotension, anxiety, HTN. H&P: Abnormal EKG, Anxiety, HTN, dizziness, CT Head: Chronic lacune identified at the upper left clem/cerebral peduncle. EKG:Normal sinus rhythm , Incomplete right bundle branch block ,Minimal voltage criteria for LVH, may be normal variant , ST T wave abnormality, consider anterior ischemia Clarification of your documentation is requested to better reflect the severity of illness and intensity of treatment of your patient. Indicators present PHYSICIAN'S RESPONSE ok will document Based on your medical judgment of the clinical indicators outlined above please clarify the following: [] Practitioner response [] If unable to determine, please check the box, sign and date. Present On Admission (POA) Indicator: [] Present at the time of admission [] Not present at the time of admission [] Clinically Undetermined In responding to this query, please exercise your independent professional judgment. The fact that a question is asked does not imply that any particular answer is desired or expected. Thank you for your clarification on this documentation. If you have any questions please call:[phone] * Thank you, Christine Headley RN CDMP MTDD
[2017-08-09] MEDS: Pantoprazole 40 mg EC Tab PO SCH (09:28)
[2017-08-09] MEDS: Enoxaparin 40 mg Syringe SC SCH (09:30)
--- NOTE | 2017-08-09 13:33 | CP.PCM.DIS ---
Provider - Provider Date of Admission: 08/07/17 14:37 Attending physician: Rowena Asif MD Time Spent in preparation of Discharge (in minutes): 30 Diagnosis - Discharge Diagnosis (1) Orthostatic hypotension Status: Resolved (2) Head injury Status: Resolved (3) Contusion, forearm Status: Resolved (4) Dizziness Status: Chronic (5) Abnormal EKG Status: Chronic Hospital Course - Lab Results Lab Results: Most Recent Lab Values WBC 5.9 K/uL (4.8-10.8) 08/08/17 04:20 RBC 3.91 Mil/uL (3.80-5.20) 08/08/17 04:20 Hgb 11.2 g/dL (12.0-16.0) L 08/08/17 04:20 Hct 33.9 % (34.0-47.0) L 08/08/17 04:20 MCV 86.9 fl (81.0-99.0) 08/08/17 04:20 MCH 28.6 pg (27.0-31.0) 08/08/17 04:20 MCHC 32.9 g/dL (33.0-37.0) L 08/08/17 04:20 RDW 14.5 % (11.5-14.5) 08/08/17 04:20 Plt Count 226 K/uL (130-400) 08/08/17 04:20 MPV 8.5 fl (7.2-11.7) 08/07/17 09:40 Neut % (Auto) 61.7 % (50.0-75.0) 08/07/17 09:40 Lymph % (Auto) 26.7 % (20.0-40.0) 08/07/17 09:40 Atkinson % (Auto) 7.6 % (0.0-10.0) 08/07/17 09:40 Eos % (Auto) 3.0 % (0.0-4.0) 08/07/17 09:40 Baso % (Auto) 1.0 % (0.0-2.0) 08/07/17 09:40 Neut # (Auto) 3.8 K/uL (1.8-7.0) 08/07/17 09:40 Lymph # (Auto) 1.6 K/uL (1.0-4.3) 08/07/17 09:40 Atkinson # (Auto) 0.5 K/uL (0.0-0.8) 08/07/17 09:40 Eos # (Auto) 0.2 K/uL (0.0-0.7) 08/07/17 09:40 Baso # (Auto) 0.1 K/uL (0.0-0.2) 08/07/17 09:40 Sodium 141 mmol/l (132-148) 08/07/17 09:40 Potassium 4.3 MMOL/L (3.6-5.0) 08/07/17 09:40 Chloride 103 mmol/L (98-107) 08/07/17 09:40 Carbon Dioxide 26 mmol/L (22-30) 08/07/17 09:40 Anion Gap 16 (10-20) 08/07/17 09:40 BUN 15 mg/dl (7-17) 08/07/17 09:40 Creatinine 1.0 mg/dl (0.7-1.2) 08/07/17 09:40 Est GFR ( Amer) > 60 08/07/17 09:40 Est GFR (Non-Af Amer) 55 08/07/17 09:40 Random Glucose 89 mg/dL (65-105) 08/07/17 09:40 Calcium 9.5 mg/dL (8.4-10.2) 08/07/17 09:40 Iron 35 ug/dL (37-170) L 08/08/17 04:20 TIBC 432 ug/dL (250-450) 08/08/17 04:20 % Saturation 8 % (20-55) L 08/08/17 04:20 Ferritin 8.4 ng/Ml (11.1-264.0) L 08/08/17 04:20 Total Bilirubin 0.4 mg/dl (0.2-1.3) 08/07/17 09:40 AST 27 U/L (14-36) 08/07/17 09:40 ALT 27 U/L (9-52) 08/07/17 09:40 Alkaline Phosphatase 117 U/L (38-126) 08/07/17 09:40 Total Creatine Kinase 62 U/L (30-135) 08/07/17 09:40 Troponin I < 0.0120 ng/mL (0.00-0.120) 08/08/17 03:00 Total Protein 7.4 G/DL (6.3-8.2) 08/07/17 09:40 Albumin 3.8 g/dL (3.5-5.0) 08/07/17 09:40 Globulin 3.6 gm/dL (2.2-3.9) 08/07/17 09:40 Albumin/Globulin Ratio 1.1 (1.0-2.1) 08/07/17 09:40 Triglycerides 79 mg/DL (0-149) 08/08/17 04:20 Cholesterol 194 mg/dL (0-199) 08/08/17 04:20 LDL Cholesterol Direct 104 mg/dL (0-129) 08/08/17 04:20 HDL Cholesterol 57 MG/DL (30-70) 08/08/17 04:20 - Hospital Course Hospital Course: 67 year old female with PMHx of HTN, HLD, Ashtma presented to ED on 08/07/17 after a fall on Monday preceded by dizziness. Patient injured her R forearm, hand, neck and back. Patient denies LOC though cant remember how she fell though she knows it was 3 steps.Patient taking OTC NSAIDs with some relief. Denies chest pain, SOB, fever, edema or focal weakness. Patient was evaluated in ED, xrays/CT were completed, unremarkable. However, there was some notable ekg changes (NSR, IRBBB, LVH and possible anterior ischemia) and pt was admitted to telemetry to r/o ACS. Troponin x 3 were negative. Pt's program manager rn was consulted and cleared the patient from cardiac perspective. Pt had multiple measures of hypotension during hospitalization. . Diovan and metoprolol were discontinued and advised to f/u with PMD and program manager rn in 1 week. Pt has an appointment with psychiatrist on 08/11/17 and was recommended to review all psych medications that may exacerbate her dizziness and lead to a fall. No new medications were prescribed. Discharge medicatons: Metoprolol Succinate (Toprol Xl) 25 mg PO daily (discontinued) Diovan 160 mg po daily (discontinued) Gabapentin (Neurontin) 600 mg PO TID NANDINI ( advised to take it prn) Clonazepam (Klonopin) 0.5 mg PO TID NANDINI( advised to take it prn) Aspirin (Ecotrin) 81 mg PO DAILY NANDINI Bupropion HCl (Wellbutrin) 100 mg PO Q12 NANDINI Calcium Carbonate (Oscal) 500 mg PO BID NANDINI Clopidogrel Bisulfate (Plavix) 75 mg PO DAILY NANDINI Escitalopram Oxalate (Lexapro) 20 mg PO DAILY NANDINI Home Med (Diclofenac Sodium [Voltaren]) 1 appl TOP Q8 PRN Meclizine HCl (Antivert) 25 mg PO Q8 PRN Pantoprazole Sodium (Protonix Ec Tab) 40 mg PO DAILY NANDINI Topiramate (Topamax) 50 mg PO BID NANDINI Zolpidem Tartrate (Ambien) 5 mg PO HS PRN Carafate 1 mg po TID Imipramine 25 mg tab po HS Discharge Exam - Head Exam Head Exam: ATRAUMATIC, NORMAL INSPECTION - Eye Exam Eye Exam: EOMI, Normal appearance - ENT Exam ENT Exam: Mucous Membranes Moist, Normal Oropharynx - Neck Exam Neck exam: Normal Inspection - Respiratory Exam Respiratory Exam: Clear to PA & Lateral, NORMAL BREATHING PATTERN. absent: Rhonchi, Wheezes, Respiratory Distress - Cardiovascular Exam Cardiovascular Exam: REGULAR RHYTHM, RRR, +S1, +S2 - GI/Abdominal Exam GI & Abdominal Exam: Normal Bowel Sounds, Soft. absent: Tenderness - Neurological Exam Neurological exam: Alert, Oriented x3 - Psychiatric Exam Psychiatric exam: Normal Affect, Normal Mood - Skin Skin Exam: Normal Color, Warm Discharge Plan - Follow Up Plan Condition: STABLE Disposition: HOME/ ROUTINE Instructions: Vertigo (a Type of Dizziness) (DC), Low Blood Pressure (DC) Additional Instructions: The following 2 medications were discontinued due to low blood pressure. Please stop taking Diovan 160 mg and Metoprolol 25 mg. Follow up with your PMD and program manager rn in 1 week. The following medications are changed to as needed basis ( dont have to take three times daily if you dont need to) due to increased risk of dizziness and fall: Gabapentin 300mg three times daily as needed and Klonopin 0.5mg three times daily as needed. Please follow up with your psychiatrist as scheduled on . Aspirin (Ecotrin) 81 mg PO DAILY [facility] Bupropion HCl (Wellbutrin) 100 mg PO Q12 [facility] Calcium Carbonate (Oscal) 500 mg PO BID NANDINI Clonazepam (Klonopin) 0.5 mg PO TID PRN ( NEEDED) Reason: Anxiety Clopidogrel Bisulfate (Plavix) 75 mg PO DAILY [facility] Escitalopram Oxalate (Lexapro) 20 mg PO DAILY NANDINI Gabapentin (Neurontin) 600 mg PO TID PRN ( NEEDED) Reason: Pain Home Med (Diclofenac Sodium [Voltaren]) 1 appl TOP Q8 PRN Meclizine HCl (Antivert) 25 mg PO Q8 PRN Pantoprazole Sodium (Protonix Ec Tab) 40 mg PO DAILY [facility] Topiramate (Topamax) 50 mg PO BID [facility] Zolpidem Tartrate (Ambien) 5 mg PO HS PRN Reason: Insomnia Referrals: Claudy Ford MD [Staff Provider] -
[2017-08-09 15:34] VITALS: BP 121/81; PULSE 70; TEMP 98; O2SAT 99
== END 2017-08-09 17:00 | disposition home or self-care (01) ==
LOC: H.ER 08:58 → H.ERHOLD 14:37 → H.TEL 16:47 → OBSVTOIN 08-08 17:04 → INTOOBSV 08-08 17:04
PROVIDERS: ADMIT Family Medicine Geriatric Medicine; ATTEND Family Medicine Geriatric Medicine
DX: S09.90XA Unspecified injury of head, initial encounter (principal); E78.00 Pure hypercholesterolemia, unspecified; E78.5 Hyperlipidemia, unspecified; F41.9 Anxiety disorder, unspecified; I10 Essential (primary) hypertension; I45.10 Unspecified right bundle-branch block; I95.1 Orthostatic hypotension; J45.909 Unspecified asthma, uncomplicated; S50.10XA Contusion of unspecified forearm, initial encounter; S63.90XA Sprain of unspecified part of unspecified wrist and hand, initial encounter; W19.XXXA Unspecified fall, initial encounter; Z79.02 Long term (current) use of antithrombotics/antiplatelets; Z79.82 Long term (current) use of aspirin; Z79.899 Other long term (current) drug therapy; Z86.73 Personal history of transient ischemic attack (TIA), and cerebral infarction without residual deficits; Z90.710 Acquired absence of both cervix and uterus; Z98.84 Bariatric surgery status; D64.9 Anemia, unspecified; E66.9 Obesity, unspecified; F32.9 Major depressive disorder, single episode, unspecified; M19.90 Unspecified osteoarthritis, unspecified site; R00.2 Palpitations; R32 Unspecified urinary incontinence; R42 Dizziness and giddiness; R55 Syncope and collapse
CPT/HCPCS: 36415; 70450; 71046; 72114; 72170; 73090; 73130; 80053; 80061; 82550; 82728; 83540; 83550; 84484; 85025; 85027; 93005; 97116; 97162; 99282; G0378; G8978; G8979; J1650

== ENCOUNTER 2018-08-14 15:42 | Emergency (ER) | payer MEDICARE, MEDICAID ==
[2018-08-14 15:42] VITALS: BMI 34.5
[2018-08-14 16:37] VITALS: RESP 16; O2SAT 100
--- NOTE | 2018-08-14 18:38 | ED PDOC ---
HPI: Neurologic - General Time Seen by Provider: 08/14/18 18:05 Chief Complaint (Nursing): Dizziness/Lightheaded Chief Complaint (Provider): Dizziness/Lightheaded Source: patient Exam Limitations: no limitations - History of Present Illness Timing/Duration: 1 week, waxing and waning Associated Symptoms: nausea/vomiting, weakness, other (dizziness) Allergies/Adverse Reactions: Allergies No Known Allergies Allergy (Verified 08/14/18 16:33) Home Medications: Ambulatory Orders Aspirin [Adult Low Dose Aspirin EC] 81 mg PO DAILY 03/06/17 Diclofenac Sodium [Voltaren] 1 appl TOP Q8 PRN 03/06/17 Topiramate [Topamax] 50 mg PO BID 03/06/17 Albuterol 0.083% [Albuterol 0.083% Inhal Luz (2.5 mg/3 ml) UD] 3 ml IH Q6 PRN 08/07/17 Calcium Carbonate [Oscal] 1 tab PO BID 08/07/17 Clopidogrel [Plavix] 75 mg PO DAILY 08/07/17 Diclofenac Sodium [Diclofenac Sodium ER] 100 mg PO Q12 08/07/17 Escitalopram [Lexapro] 20 mg PO DAILY 08/07/17 Imipramine [Tofranil] 50 mg PO HS 08/07/17 Meclizine [Meclizine*] 25 mg PO Q8 08/07/17 Sucralfate [Carafate] 1 gm PO BID 08/07/17 buPROPion SR [Wellbutrin] 100 mg PO Q12 08/07/17 Zolpidem [Ambien] 5 mg PO HS PRN tab 08/08/17 clonazePAM [Klonopin] 0.5 mg PO TID PRN #0 08/08/17 Gabapentin [Neurontin] 600 mg PO TID PRN #0 08/09/17 clonazePAM [Klonopin] 0.5 mg PO TID PRN tab 08/09/17 Additional Complaint(s): 68 year old male with a history of anxiety, anemia, vertigo, CAD and depression presents to the ED for evaluation of dizziness for the last 3 days, worst today. Patient describes dizziness as "room spinning" and is worse with movement of her head. She reports mild nausea, vomiting and weakness this morning. Patient regularly takes Meclizine for vertigo, with her last dose today. Denies headache, photophobia, numbness and tingling to extremities. PMD: Dr. Patrice Herrera Past Medical History Reviewed: Historical Data, Nursing Documentation, Vital Signs Vital Signs: Last Vital Signs Temp 97.9 F 08/14/18 16:36 Pulse 54 L 08/14/18 16:36 Resp 16 08/14/18 16:36 BP 122/66 08/14/18 16:36 Pulse Ox 100 08/14/18 16:36 Primary Care Provider: Patrice Herrera - Medical History PMH: Anemia, Anxiety, Arthritis, Asthma, CAD, Depression, HTN, Hypercholesterolemia Denies: HIV, Chronic Kidney Disease - Surgical History Surgical History: (x 5) Other surgeries: gastric bypass - Family History Family History: States: Unknown Family Hx - Social History Current smoker - smoking cessation education provided: No Alcohol: None Drugs: Denies - Home Medications Home Medications: Ambulatory Orders Medication Instructions Recorded Aspirin [Adult Low Dose Aspirin EC] 81 mg PO DAILY 03/06/17 Diclofenac Sodium [Voltaren] 1 appl TOP Q8 PRN 03/06/17 Topiramate [Topamax] 50 mg PO BID 03/06/17 Albuterol 0.083% [Albuterol 0.083% 3 ml IH Q6 PRN 08/07/17 Inhal Luz (2.5 mg/3 ml) UD] Calcium Carbonate [Oscal] 1 tab PO BID 08/07/17 Clopidogrel [Plavix] 75 mg PO DAILY 08/07/17 Diclofenac Sodium [Diclofenac 100 mg PO Q12 08/07/17 Sodium ER] Escitalopram [Lexapro] 20 mg PO DAILY 08/07/17 Imipramine [Tofranil] 50 mg PO HS 08/07/17 Meclizine [Meclizine*] 25 mg PO Q8 08/07/17 Sucralfate [Carafate] 1 gm PO BID 08/07/17 buPROPion SR [Wellbutrin] 100 mg PO Q12 08/07/17 Zolpidem [Ambien] 5 mg PO HS PRN tab 08/08/17 clonazePAM [Klonopin] 0.5 mg PO TID PRN #0 08/08/17 Gabapentin [Neurontin] 600 mg PO TID PRN #0 08/09/17 clonazePAM [Klonopin] 0.5 mg PO TID PRN tab 08/09/17 - Allergies Allergies/Adverse Reactions: Allergies Allergy/AdvReac Type Severity Reaction Status Date / Time No Known Allergies Allergy Verified 08/14/18 16:33 Review of Systems ROS Statement: Except As Marked, All Systems Reviewed And Found Negative Constitutional: Positive for: Weakness Gastrointestinal: Positive for: Nausea, Vomiting. Negative for: Abdominal Pain Neurological: Positive for: Dizziness. Negative for: Seizures, Headache Physical Exam - Reviewed Nursing Documentation Reviewed: Yes - Physical Exam Appears: Positive for: No Acute Distress Head Exam: Positive for: ATRAUMATIC, NORMAL INSPECTION, NORMOCEPHALIC Skin: Positive for: Normal Color, Warm, Dry Eye Exam: Positive for: Normal appearance, EOMI, PERRL. Negative for: Nystagmus ENT: Positive for: Normal ENT Inspection Neck: Positive for: Normal, Painless ROM, Supple Cardiovascular/Chest: Positive for: Regular Rate, Rhythm. Negative for: Murmur Respiratory: Positive for: Normal Breath Sounds. Negative for: Respiratory Distress Gastrointestinal/Abdominal: Positive for: Normal Exam, Soft. Negative for: T enderness, Mass, Guarding Back: Positive for: Normal Inspection. Negative for: L CVA Tenderness, R CVA Tenderness Extremity: Positive for: Normal ROM. Negative for: Deformity Neurological/Psych: Positive for: Awake, Alert, Normal Tone, Oriented (x 3), Gait (stable), veneer layer II-XII (intact). Negative for: Motor/Sensory Deficits, Facial Droop - Laboratory Results Result Diagrams: 08/14/18 19:01 08/14/18 19:01 - ECG ECG: Positive for: Interpreted By Me, Viewed By La ECG Rhythm: Positive for: Sinus Bradycardia Rate: 50 O2 Sat by Pulse Oximetry: 100 (RA) Pulse Ox Interpretation: Normal Medical Decision Making Medical Decision Makin:42 Impression: dizziness rule out intracranial abnormality, rule out vertigo, electrolyte abnormality Initial Plan: --CT Head without contrast --CBC --CMP --Zofran 4 mg IV --EKG 20:[address] FINDINGS: BRAIN: Chronic periventricular and subcortical microvascular disease is seen. No acute intracranial pathology. VENTRICLES: There is generalized parenchymal atrophy noted as demonstrated by symmetrical dilatation of ventricles and sulci. ORBITS: The orbits are unremarkable. SINUSES AND MASTOIDS: The paranasal sinuses and mastoid air cells are clear. BONES: No fracture. SOFT TISSUES: Unremarkable. IMPRESSION: 1. There is generalized parenchymal atrophy 2. Chronic periventricular and subcortical microvascular disease is seen. 3. No acute intracranial pathology. 20:51 Repeat pulse of 60. EKG with no changes compared to prior study. Patient's labs reveal no clinically significant abnormalities at this time. UA negative for infection. She reports improvement of symptoms and will be discharged, states dizziness is gone. Diagnosis is vertigo. instructed to follow up in clinic where she goes here in [place]. Scribe Attestation: Documented by Bronwyn López, acting as a scribe for Steve Newman MD. Provider Scribe Attestation: All medical record entries made by the Scribe were at my direction and personally dictated by me. I have reviewed the chart and agree that the record accurately reflects my personal performance of the history, physical exam, medical decision making, and the department course for this patient. I have also personally directed, reviewed, and agree with the discharge instructions and disposition. Disposition - Clinical Impression Clinical Impression: Vertigo - Patient ED Disposition Is Patient to be Admitted: No Counseled Patient/Family Regarding: Studies Performed, Diagnosis, Need For Followup - Disposition Disposition: Routine/Home Disposition Time: 20:50 Condition: IMPROVED Additional Instructions: follow up with Dr Herrera in the clinic in 1-2 days take the meclizine that you have at home as prescribed as needed for dizziness return to the ED with any worsening or concerning symptoms Instructions: Vertigo (a Type of Dizziness) Forms: [employer] (Guatemalan)
[2018-08-14 19:05] LABS: BASO % 0.3 % (0.0-2.0); EOS % 0.5 % (0.0-4.0); HEMOGLOBIN 11.2 g/dL (12.0-16.0); LYMPH # 1.4 K/uL (1.0-4.3); LYMPH % 16.4 % (20.0-40.0); MEAN CELL VOLUME 84.8 fl (81.0-99.0); MEAN CORPUSCULAR HGB CONC 31.8 g/dL (33.0-37.0); MEAN PLATELET VOLUME 8.7 fl (7.2-11.7); MONO # 0.3 K/uL (0.0-0.8); NEUT # 6.6 K/uL (1.8-7.0); NEUT % 78.8 % (50.0-75.0); RBC 4.13 Mil/uL (3.80-5.20); RED CELL DISTRIBUTION WIDTH 14.9 % (11.5-14.5); WHITE BLOOD COUNT 8.4 K/uL (4.8-10.8)
[2018-08-14 19:14] LABS: ALB/GLOB RATIO 1.2 (1.0-2.1); ALT/SGPT 13 U/L (9-52); AST/SGOT 35 U/L (14-36); BLOOD UREA NITROGEN 13 mg/dl (7-17); CALCIUM 9.3 mg/dL (8.4-10.2); GFR NON-AFRICAN AMERICAN > 60
[2018-08-14 22:40] VITALS: BP 116/61; TEMP 98.4
--- NOTE | 2018-08-15 08:44 | CT ---
Date of service: 08/14/2018 PROCEDURE: CT HEAD WITHOUT CONTRAST. HISTORY: headache COMPARISON: 08/07/2017 TECHNIQUE: Axial computed tomography images were obtained through the head/brain without intravenous contrast. Radiation dose: Total exam DLP = 793.36 mGy-cm. This CT exam was performed using one or more of the following dose reduction techniques: Automated exposure control, adjustment of the mA and/or kV according to patient size, and/or use of iterative reconstruction technique. FINDINGS: HEMORRHAGE: No intracranial hemorrhage. BRAIN: No mass effect or edema. There are generalized cerebral atrophy changes and few chronic microvascular ischemic changes.. The vague hypodensity in the anterior superior left clem-midbrain segment is similar appearance-this has previously been referenced as a lacune. No interval acute pathology here or elsewhere in the brain stem noted. Correlate clinically VENTRICLES: unremarkable. No hydrocephalus. CALVARIUM: Unremarkable. PARANASAL SINUSES: Unremarkable as visualized. No significant inflammatory changes. MASTOID AIR CELLS: Unremarkable as visualized. No inflammatory changes. OTHER FINDINGS: None. IMPRESSION: No acute hemorrhage or mass effect. Chronic changes as above. Concordant results (preliminary interpretation) provided by [facility].
--- NOTE | 2018-08-15 10:54 | CARD ---
APPROVED REPORT Date of service: 08/14/2018 EKG Measurement Heart [id number] <Conclusion> Sinus bradycardia Minimal voltage criteria for LVH, may be normal variant Nonspecific ST and T wave abnormality Abnormal ECG
[2018-08-18 19:55] VITALS: PULSE 50
== END 2018-08-14 21:45 | disposition home or self-care (01) ==
LOC: H.ER 15:42
DX: R42 Dizziness and giddiness (principal); E78.00 Pure hypercholesterolemia, unspecified; I10 Essential (primary) hypertension; I25.10 Atherosclerotic heart disease of native coronary artery without angina pectoris
CPT/HCPCS: 70450; 80053; 85025; 93005; 96374; 99285; J2405